=== PATIENT | male | born 1950 | race African-American/Black ===

== ENCOUNTER 2019-04-01 11:41 | Inpatient (IN) | payer BC ==
[~2019-04-01] VITALS: Ht 180.3 cm; Wt 94.3 kg
[2019-04-01] MEDS ORDERED: FAMO20TA8 PO (11:52)
[2019-04-01] MEDS ORDERED: TAMS-11 PO (11:52)
[2019-04-01] MEDS ORDERED: ALIS300T PO (11:52)
[2019-04-01] MEDS ORDERED: METO-411 PO (11:52)
[2019-04-01] MEDS ORDERED: HYDR-4135 PO (11:52)
[2019-04-01] MEDS ORDERED: LOSA100T32 PO (11:52)
[2019-04-01 14:04] LABS: BASOPHILS % 0.7 % (0.0-2.0); EOSINOPHILS % 2.9 % (0.0-5.0); HEMATOCRIT. 39.4 % (42.0-52.0); HEMOGLOBIN. 12.8 g/dL (14.0-18.0); LYMPHOCYTES % 21.8 % (20.0-50.0); MEAN CORPUSCULAR HEMOGLOBIN 25.8 pg (28.0-32.0); MEAN CORPUSCULAR VOLUME 79.6 fL (80.0-94.0); MEAN PLATELET VOLUME 8.2 fl (7.4-10.4); MONOCYTES % 11.9 % (2.0-8.0); NEUTROPHILS % 62.7 % (40.0-76.0); PLATELET 251 x1000/uL (130-400); RED BLOOD CELL COUNT 4.95 mill/uL (4.7-6.1); RED CELL DISTRIBUTION WIDTH 15.3 % (11.6-14.6)
[2019-04-01 14:08] LABS: CHLORIDE 103 mEq/L (98-107)
[2019-04-01] MEDS ORDERED: ASPIRIN 325MG EC TABLET PO ONE (14:30)
[2019-04-01] MEDS ORDERED: CLONIDINE 0.1MG TABLET PO ONE (15:15)
[2019-04-01] MEDS ORDERED: MAGNESIUM/ALUMINUM HYDROXIDE/SIMETHICONE 30ML UDC PO PRN (16:15)
[2019-04-01] MEDS ORDERED: ENOXAPARIN 40MG/0.4ML SYR SUBCUT SCH (16:15)
[2019-04-01] MEDS ORDERED: NA PHOS,M-B/NA PHOS,DI-BA ENEMA 118ML PR PRN (16:15)
[2019-04-01] MEDS ORDERED: HYDROCODONE/ACETAMINOPHEN 10/325MG TABLET PO PRN (16:15)
[2019-04-01] MEDS ORDERED: LORAZEPAM 2MG/ML CPJ IV PRN (16:15)
[2019-04-01] MEDS ORDERED: IPRATROPIUM/ALBUTEROL 0.5-3(2.5)MG/3ML NEB INH PRN (16:15)
[2019-04-01] MEDS ORDERED: ONDANSETRON HCL 4MG/2ML INJ IV PRN (16:15)
[2019-04-01] MEDS ORDERED: HYDRALAZINE 20MG/ML VIAL IV PRN ×2 (16:15→17:30)
[2019-04-01] MEDS ORDERED: ACETAMINOPHEN 325MG TABLET PO PRN (16:15)
[2019-04-01] MEDS ORDERED: DIPHENHYDRAMINE 50MG/ML VIAL IV PRN (16:15)
[2019-04-01] MEDS ORDERED: HYDROMORPHONE HCL/PF 2MG/ML CPJ IV PRN (16:15)
[2019-04-01] MEDS ORDERED: GUAIFENESIN 200MG/10ML SUGAR FREE UDC PO PRN (16:15)
[2019-04-01] MEDS: CLONIDINE 0.1MG TABLET PO PRN (17:48)
[2019-04-01 19:14] VITALS: BP 127/75
[2019-04-01 20:00] VITALS: BP_SYST 116; BP_SYST 127; BP_DIAS 59; BP_DIAS 75
[2019-04-01] MEDS: ENOXAPARIN 40MG/0.4ML SYR SUBCUT SCH (20:00)
[2019-04-01] MEDS: SODIUM CHLORIDE 0.9% INJ 3ML FLUSH IVF SCH (21:42)
[2019-04-02] VITALS: BP 147/96
[2019-04-02 04:00] VITALS: BP 150/98
[2019-04-02] MEDS: SODIUM CHLORIDE 0.9% INJ 3ML FLUSH IVF SCH ×2 (05:13→21:01)
[2019-04-02] MEDS: CLONIDINE 0.1MG TABLET PO PRN (06:13)
[2019-04-02 08:00] VITALS: BP 157/94
[2019-04-02 09:21] LABS: BASOPHILS % 0.4 % (0.0-2.0); EOSINOPHILS % 4.4 % (0.0-5.0); HEMATOCRIT. 39.4 % (42.0-52.0); HEMOGLOBIN. 12.7 g/dL (14.0-18.0); LYMPHOCYTES % 38.3 % (20.0-50.0); MEAN CORPUSCULAR HEMOGLOBIN 25.8 pg (28.0-32.0); MEAN CORPUSCULAR VOLUME 80.2 fL (80.0-94.0); MONOCYTES % 13.2 % (2.0-8.0); NEUTROPHILS % 43.7 % (40.0-76.0); RED BLOOD CELL COUNT 4.92 mill/uL (4.7-6.1); RED CELL DISTRIBUTION WIDTH 15.3 % (11.6-14.6)
[2019-04-02 09:23] LABS: CHLORIDE 105 mEq/L (98-107)
[2019-04-02 09:31] LABS: HDL CHOLESTEROL 36 mg/dL (40-59); LDL CHOLESTEROL 186 mg/dL (5-100)
[2019-04-02 09:32] LABS: T4 FREE 0.93 ng/dL (0.76-1.46)
[2019-04-02] MEDS: HYDRALAZINE HCL 50MG TABLET PO SCH ×2 (09:32→21:00)
[2019-04-02] MEDS: ASPIRIN 81MG EC TABLET PO SCH (09:33)
[2019-04-02] MEDS: METOPROLOL TARTRATE 50MG TABLET PO SCH ×2 (09:33→21:00)
[2019-04-02] MEDS: DOCUSATE SODIUM 100MG CAPSULE PO PRN (09:33)
[2019-04-02 09:35] LABS: CREATINE KINASE 95 IU/L (39-308)
[2019-04-02 09:36] LABS: CREATINE KINASE MB FRACTION 1.7 ng/mL (0.5-3.6)
[2019-04-02] MEDS ORDERED: REGADENOSON 0.4 MG/5 ML IV ONE (11:45)
[2019-04-02 12:00] VITALS: BP 128/78
[2019-04-02 16:00] VITALS: BP 151/91
[2019-04-02 20:00] VITALS: BP 160/93
[2019-04-02 20:13] LABS: CLARITY URINE CLEAR (CLEAR); COLOR URINE YELLOW (YELLOW); KETONES URINE NEGATIVE (NEGATIVE); LEUKOCYTE ESTERASE URINE NEGATIVE (NEGATIVE); NITRITE URINE NEGATIVE (NEGATIVE); OCCULT BLOOD URINE NEGATIVE (NEGATIVE); PROTEIN URINE NEGATIVE (NEGATIVE); SPECIFIC GRAVITY URINE 1.013 (1.005-1.030)
[2019-04-02] MEDS: ENOXAPARIN 40MG/0.4ML SYR SUBCUT SCH (21:00)
[2019-04-03] VITALS: BP 157/102
[2019-04-03 04:00] VITALS: BP 153/86
[2019-04-03] MEDS: SODIUM CHLORIDE 0.9% INJ 3ML FLUSH IVF SCH ×3 (05:27→22:19)
[2019-04-03] MEDS: CLONIDINE 0.1MG TABLET PO PRN (06:28)
[2019-04-03] MEDS: DOCUSATE SODIUM 100MG CAPSULE PO PRN ×2 (06:28→17:39)
[2019-04-03 06:49] LABS: CHLORIDE 105 mEq/L (98-107)
[2019-04-03 06:50] LABS: BASOPHILS % 0.8 % (0.0-2.0); EOSINOPHILS % 3.8 % (0.0-5.0); HEMATOCRIT. 39.9 % (42.0-52.0); LYMPHOCYTES % 34.2 % (20.0-50.0); MEAN CORPUSCULAR HEMOGLOBIN 26.1 pg (28.0-32.0); MEAN CORPUSCULAR VOLUME 79.8 fL (80.0-94.0); MEAN PLATELET VOLUME 7.9 fl (7.4-10.4); MONOCYTES % 11.9 % (2.0-8.0); NEUTROPHILS % 49.3 % (40.0-76.0); PLATELET 273 x1000/uL (130-400); RED CELL DISTRIBUTION WIDTH 15.4 % (11.6-14.6)
[2019-04-03 08:00] VITALS: BP 162/89
[2019-04-03] MEDS: ASPIRIN 81MG EC TABLET PO SCH (08:54)
[2019-04-03] MEDS: METOPROLOL TARTRATE 50MG TABLET PO SCH ×2 (08:54→21:03)
[2019-04-03 12:00] VITALS: BP 156/92
[2019-04-03] MEDS: HYDRALAZINE HCL 50MG TABLET PO SCH ×3 (15:59→17:41)
[2019-04-03 16:00] VITALS: BP 150/88
[2019-04-03 20:00] VITALS: BP 117/61
[2019-04-03] MEDS ORDERED: GABAPENTIN 400MG CAPSULE PO SCH (21:00)
[2019-04-03] MEDS: ENOXAPARIN 40MG/0.4ML SYR SUBCUT SCH (21:02)
[2019-04-04] VITALS: BP 138/77
[2019-04-04 04:00] VITALS: BP 134/69
[2019-04-04] MEDS: SODIUM CHLORIDE 0.9% INJ 3ML FLUSH IVF SCH ×2 (06:52→14:53)
[2019-04-04 08:00] VITALS: BP 161/100
[2019-04-04] MEDS: ASPIRIN 81MG EC TABLET PO SCH (08:20)
[2019-04-04] MEDS: HYDRALAZINE HCL 50MG TABLET PO SCH (08:21)
[2019-04-04] MEDS: METOPROLOL TARTRATE 50MG TABLET PO SCH (08:21)
[2019-04-04 08:34] LABS: HEMATOCRIT. 40.2 % (42.0-52.0); HEMOGLOBIN. 13.1 g/dL (14.0-18.0); MEAN CORPUSCULAR HEMOGLOBIN 26.2 pg (28.0-32.0); MEAN CORPUSCULAR VOLUME 80.1 fL (80.0-94.0); MEAN PLATELET VOLUME 8.2 fl (7.4-10.4); PLATELET 263 x1000/uL (130-400); RED BLOOD CELL COUNT 5.01 mill/uL (4.7-6.1); RED CELL DISTRIBUTION WIDTH 15.5 % (11.6-14.6)
[2019-04-04 08:44] LABS: CHLORIDE 105 mEq/L (98-107)
[2019-04-04] MEDS ORDERED: REGADENOSON 0.4 MG/5 ML IV ONE (09:32)
[2019-04-04 12:00] VITALS: BP 161/92
[2019-04-04 13:49] LABS: PLATELET ESTIMATE NORMAL
[2019-04-04 14:35] VITALS: BP 161/92
[2019-04-04] MEDS: HYDRALAZINE HCL 100MG TABLET PO SCH ×2 (14:54→17:13)
[2019-04-04 16:00] VITALS: BP 128/72
== END 2019-04-04 17:41 | disposition home or self-care (01) | DRG 305 ==
LOC: ER 11:41 → 6WST 14:36 → EDBEDREQTM 14:40 → ENRESERV 14:47
PROVIDERS: ADMIT Internal Medicine; ATTEND Internal Medicine
DX: I10 Essential (primary) hypertension (principal); I42.9 Cardiomyopathy, unspecified; I47.2 Ventricular tachycardia; R79.9 Abnormal finding of blood chemistry, unspecified; R20.2 Paresthesia of skin; T46.5X6A Underdosing of other antihypertensive drugs, initial encounter; Z86.79 Personal history of other diseases of the circulatory system; Z79.899 Other long term (current) drug therapy; Z88.8 Allergy status to other drugs, medicaments and biological substances; Z91.14 Patient's other noncompliance with medication regimen; Z98.1 Arthrodesis status
CPT/HCPCS: 36415; 71045; 78452; 80048; 80061; 81003; 82550; 82553; 83036; 83735; 83880; 84132; 84439; 84443; 84484; 85379; 93005; 93017; 93306; 99291; A9500; J0360; J1650; J2785

== ENCOUNTER 2019-10-24 23:16 | Inpatient (IN) | payer BC ==
[~2019-10-24] VITALS: Ht 185.4 cm; Wt 85.3 kg
[~2019-10-24 23:16] MED LIST: ALIS300T PO; FAMO20TA8 PO; HYDR-4135 PO; LOSA100T32 PO; METO-411 PO; TAMS-11 PO
[2019-10-25] VITALS (8 sets, daily range): BP systolic 108–188; BP diastolic 78–130
[2019-10-25] MEDS ORDERED: HYDRALAZINE 20MG/ML VIAL IV ONE (03:00)
[2019-10-25 03:10] LABS: HEMATOCRIT. 39.4 % (42.0-52.0); HEMOGLOBIN. 12.7 g/dL (14.0-18.0); MEAN CORPUSCULAR HEMOGLOBIN 24.9 pg (28.0-32.0); MEAN PLATELET VOLUME 8.7 fl (7.4-10.4); PLATELET 183 x1000/uL (130-400); RED BLOOD CELL COUNT 5.11 mill/uL (4.7-6.1)
[2019-10-25 03:17] LABS: CHLORIDE 100 mEq/L (98-107)
[2019-10-25 03:19] LABS: INR 1.6; PARTIAL THROMBOPLASTIN TIME 27.7 sec (23.4-31.0); PROTHROMBIN TIME 17.4 sec (9.6-11.0)
[2019-10-25] MEDS ORDERED: ASPIRIN 325MG TABLET PO SCH (04:30)
[2019-10-25] MEDS ORDERED: FUROSEMIDE 20MG/2ML VIAL IVP SCH (04:30)
[2019-10-25] MEDS ORDERED: HYDRALAZINE 20MG/ML VIAL IV SCH (04:45)
[2019-10-25 05:08] LABS: ATYPICAL LYMPHOCYTES 1
[2019-10-25 05:09] LABS: PLATELET ESTIMATE NORMAL
[2019-10-25] MEDS ORDERED: METOPROLOL TARTRATE 25MG TABLET PO SCH (09:30)
[2019-10-25] MEDS ORDERED: ACETAMINOPHEN 325MG TABLET PO PRN (09:30)
[2019-10-25] MEDS ORDERED: MORPHINE SULFATE 4 MG/ML CPJ (NOT FOR IM USE) IV PRN (09:30)
[2019-10-25] MEDS ORDERED: ONDANSETRON HCL 4MG/2ML INJ IV PRN (09:30)
[2019-10-25] MEDS ORDERED: DOCUSATE SODIUM 100MG CAPSULE PO PRN (09:30)
[2019-10-25] MEDS: ASPIRIN 325MG EC TABLET PO SCH (09:30)
[2019-10-25] MEDS ORDERED: IPRATROPIUM/ALBUTEROL 0.5-3(2.5)MG/3ML NEB NEB PRN (09:30)
[2019-10-25] MEDS ORDERED: MAGNESIUM/ALUMINUM HYDROXIDE/SIMETHICONE 30ML UDC PO PRN (09:30)
[2019-10-25] MEDS ORDERED: TRAMADOL 50MG TABLET PO PRN (09:30)
[2019-10-25] MEDS ORDERED: NITROGLYCERIN 0.4MG TABLET SL SL PRN (09:30)
[2019-10-25] MEDS ORDERED: GUAIFENESIN 200MG/10ML SUGAR FREE UDC PO PRN (09:30)
[2019-10-25] MEDS ORDERED: CLONIDINE 0.1MG TABLET PO PRN (09:30)
[2019-10-25 10:13] LABS: PHOSPHORUS 3.7 mg/dL (2.5-4.9)
[2019-10-25 10:16] LABS: T4 FREE 1.29 ng/dL (0.76-1.46)
[2019-10-25] MEDS: ENOXAPARIN 100MG/ML SYR SUBCUT SCH ×2 (11:00→22:30)
[2019-10-25 13:05] LABS: *BARBITURATES SCREEN URINE NEGATIVE (NEGATIVE); *BENZODIAZEPINES SCREEN URINE NEGATIVE (NEGATIVE); CANNABINOID URINE SCREEN NEGATIVE (NEGATIVE)
[2019-10-25 13:06] LABS: *COCAINE SCREEN URINE PRESUMTIVE POSITIVE (NEGATIVE); METHADONE URINE SCREEN NEGATIVE (NEGATIVE); OPIATES URINE SCREEN NEGATIVE (NEGATIVE); PHENCYCLIDINE URINE SCREEN NEGATIVE (NEGATIVE)
[2019-10-25 13:10] LABS: *AMPHETAMINES SCREEN URINE NEGATIVE (NEGATIVE)
[2019-10-25] MEDS: LOSARTAN POTASSIUM 100 MG TABLET PO SCH (14:45)
[2019-10-25] MEDS: FUROSEMIDE 100MG/10ML VIAL IVP SCH (16:54)
[2019-10-25 17:43] LABS: CREATINE KINASE MB FRACTION 2.9 ng/mL (0.5-3.6)
[2019-10-25] MEDS: SPIRONOLACTONE 25MG TABLET PO SCH (18:31)
[2019-10-25] MEDS: HYDRALAZINE HCL 25MG TABLET PO SCH (20:22)
[2019-10-25] MEDS: ZOLPIDEM TARTRATE 5MG TABLET PO PRN (20:22)
[2019-10-25] MEDS: FAMOTIDINE 20MG TABLET PO SCH (20:22)
[2019-10-25] MEDS ORDERED: ATORVASTATIN CALCIUM 20MG TABLET PO SCH (21:00)
[2019-10-25] MEDS ORDERED: METOPROLOL TARTRATE 50MG TABLET PO SCH (21:00)
[2019-10-25 22:17] LABS: HEPATITIS B SURFACE ANTIGEN NEGATIVE
[2019-10-25 22:38] LABS: HEPATITIS A AB IGM NEGATIVE (NEGATIVE)
[2019-10-26] VITALS (12 sets, daily range): BP systolic 135–169; BP diastolic 66–105
[2019-10-26 00:36] LABS: CREATINE KINASE MB FRACTION 2.6 ng/mL (0.5-3.6)
[2019-10-26] MEDS: SPIRONOLACTONE 25MG TABLET PO SCH ×2 (05:44→18:02)
[2019-10-26] MEDS: FUROSEMIDE 100MG/10ML VIAL IVP SCH ×2 (06:18→18:01)
[2019-10-26 07:19] LABS: HEMOGLOBIN. 11.8 g/dL (14.0-18.0); MEAN CORPUSCULAR VOLUME 76.5 fL (80.0-94.0); MEAN PLATELET VOLUME 9.1 fl (7.4-10.4); PLATELET 146 x1000/uL (130-400); RED BLOOD CELL COUNT 4.71 mill/uL (4.7-6.1)
[2019-10-26 08:03] LABS: CHLORIDE 101 mEq/L (98-107)
[2019-10-26 08:26] LABS: PHOSPHORUS 3.5 mg/dL (2.5-4.9)
[2019-10-26] MEDS: FAMOTIDINE 20MG TABLET PO SCH ×2 (08:45→20:06)
[2019-10-26] MEDS: ASPIRIN 325MG EC TABLET PO SCH (08:46)
[2019-10-26] MEDS: HYDRALAZINE HCL 25MG TABLET PO SCH ×2 (08:46→20:07)
[2019-10-26] MEDS: LOSARTAN POTASSIUM 100 MG TABLET PO SCH (08:46)
[2019-10-26] MEDS: ENOXAPARIN 100MG/ML SYR SUBCUT SCH ×2 (11:47→22:53)
[2019-10-26] MEDS ORDERED: MAGNESIUM 2 G PREMIX 50 ML IV NR (16:00)
[2019-10-26 16:59] LABS: PLATELET ESTIMATE NORMAL
[2019-10-26 18:33] LABS: VITAMIN B12 SERUM >2000 pg/mL pg/mL (211-911)
[2019-10-26] MEDS: ZOLPIDEM TARTRATE 5MG TABLET PO PRN (20:06)
[2019-10-26] MEDS: AMLODIPINE 2.5MG TABLET PO SCH (20:06)
[2019-10-27] VITALS (12 sets, daily range): BP systolic 117–167; BP diastolic 54–105
[2019-10-27] MEDS: SPIRONOLACTONE 25MG TABLET PO SCH ×2 (05:04→17:45)
[2019-10-27] MEDS: FUROSEMIDE 100MG/10ML VIAL IVP SCH (06:26)
[2019-10-27 06:49] LABS: MEAN CORPUSCULAR HEMOGLOBIN 24.4 pg (28.0-32.0); MEAN CORPUSCULAR VOLUME 76.9 fL (80.0-94.0); MEAN PLATELET VOLUME 9.4 fl (7.4-10.4); PLATELET 183 x1000/uL (130-400); RED BLOOD CELL COUNT 4.94 mill/uL (4.7-6.1); RED CELL DISTRIBUTION WIDTH 17.3 % (11.6-14.6)
[2019-10-27 07:39] LABS: CHLORIDE 98 mEq/L (98-107)
[2019-10-27] MEDS: AMLODIPINE 2.5MG TABLET PO SCH ×2 (09:40→21:42)
[2019-10-27] MEDS: HYDRALAZINE HCL 25MG TABLET PO SCH ×2 (09:40→17:45)
[2019-10-27] MEDS: LOSARTAN POTASSIUM 100 MG TABLET PO SCH (09:40)
[2019-10-27] MEDS: ASPIRIN 325MG EC TABLET PO SCH (09:40)
[2019-10-27] MEDS: FAMOTIDINE 20MG TABLET PO SCH ×2 (09:41→21:42)
[2019-10-27] MEDS ORDERED: POTASSIUM CHLORIDE 20MEQ/PACKET PO NR (09:45)
[2019-10-27] MEDS: TAMSULOSIN HCL 0.4MG SR CAPSULE PO SCH (11:06)
[2019-10-27] MEDS: ENOXAPARIN 100MG/ML SYR SUBCUT SCH ×2 (11:07→22:28)
[2019-10-27] MEDS ORDERED: KCL 20MEQ/100ML PREMIX 100 ML IV NR (11:30)
[2019-10-27 17:05] LABS: PLATELET ESTIMATE NORMAL
[2019-10-27] MEDS: ZOLPIDEM TARTRATE 5MG TABLET PO PRN (21:42)
[2019-10-28] VITALS (14 sets, daily range): BP systolic 104–167; BP diastolic 56–98
[2019-10-28] MEDS: SPIRONOLACTONE 25MG TABLET PO SCH ×2 (06:31→17:01)
[2019-10-28] MEDS: FUROSEMIDE 40MG TABLET PO SCH (08:21)
[2019-10-28] MEDS: ASPIRIN 81MG TABLET PO SCH (08:21)
[2019-10-28] MEDS: TAMSULOSIN HCL 0.4MG SR CAPSULE PO SCH (08:21)
[2019-10-28] MEDS: LOSARTAN POTASSIUM 100 MG TABLET PO SCH (08:21)
[2019-10-28] MEDS: HYDRALAZINE HCL 25MG TABLET PO SCH ×3 (08:21→17:01)
[2019-10-28] MEDS: FAMOTIDINE 20MG TABLET PO SCH ×2 (08:22→21:28)
[2019-10-28] MEDS: AMLODIPINE 2.5MG TABLET PO SCH ×2 (08:22→21:29)
[2019-10-28] MEDS: ENOXAPARIN 100MG/ML SYR SUBCUT SCH ×2 (11:42→23:37)
[2019-10-28 13:33] LABS: HEMATOCRIT. 39.5 % (42.0-52.0); HEMOGLOBIN. 12.6 g/dL (14.0-18.0); MEAN CORPUSCULAR HEMOGLOBIN 24.4 pg (28.0-32.0); MEAN CORPUSCULAR VOLUME 76.6 fL (80.0-94.0); MEAN PLATELET VOLUME 9.2 fl (7.4-10.4); PLATELET 195 x1000/uL (130-400); RED BLOOD CELL COUNT 5.16 mill/uL (4.7-6.1); RED CELL DISTRIBUTION WIDTH 17.5 % (11.6-14.6)
[2019-10-28 13:41] LABS: CHLORIDE 97 mEq/L (98-107)
[2019-10-28 16:47] LABS: PLATELET ESTIMATE NORMAL
[2019-10-28] MEDS: ATORVASTATIN CALCIUM 20MG TABLET PO SCH (21:29)
[2019-10-28] MEDS: ZOLPIDEM TARTRATE 5MG TABLET PO PRN (21:29)
[2019-10-29] VITALS (11 sets, daily range): BP systolic 120–155; BP diastolic 60–91
[2019-10-29] MEDS: SPIRONOLACTONE 25MG TABLET PO SCH ×2 (06:44→17:01)
[2019-10-29 07:11] LABS: HEMATOCRIT. 36.8 % (42.0-52.0); HEMOGLOBIN. 12.3 g/dL (14.0-18.0); MEAN CORPUSCULAR HEMOGLOBIN 25.4 pg (28.0-32.0); MEAN CORPUSCULAR VOLUME 76.2 fL (80.0-94.0); MEAN PLATELET VOLUME 8.9 fl (7.4-10.4); PLATELET 205 x1000/uL (130-400); RED BLOOD CELL COUNT 4.84 mill/uL (4.7-6.1); RED CELL DISTRIBUTION WIDTH 16.9 % (11.6-14.6)
[2019-10-29 07:25] LABS: CHLORIDE 99 mEq/L (98-107)
[2019-10-29] MEDS: ASPIRIN 81MG TABLET PO SCH (08:13)
[2019-10-29] MEDS: HYDRALAZINE HCL 25MG TABLET PO SCH ×3 (08:13→17:01)
[2019-10-29] MEDS: AMLODIPINE 2.5MG TABLET PO SCH (08:13)
[2019-10-29] MEDS: LOSARTAN POTASSIUM 100 MG TABLET PO SCH (08:13)
[2019-10-29] MEDS: FUROSEMIDE 40MG TABLET PO SCH (08:14)
[2019-10-29] MEDS: FAMOTIDINE 20MG TABLET PO SCH ×2 (08:14→21:47)
[2019-10-29] MEDS: TAMSULOSIN HCL 0.4MG SR CAPSULE PO SCH (08:14)
[2019-10-29] MEDS: ENOXAPARIN 100MG/ML SYR SUBCUT SCH (11:05)
[2019-10-29 19:51] LABS: PLATELET ESTIMATE NORMAL
[2019-10-29] MEDS: ATORVASTATIN CALCIUM 20MG TABLET PO SCH (21:46)
[2019-10-29] MEDS: AMLODIPINE 5MG TABLET PO SCH (21:47)
[2019-10-30] VITALS (8 sets, daily range): BP systolic 120–150; BP diastolic 67–98
[2019-10-30] MEDS: ENOXAPARIN 100MG/ML SYR SUBCUT SCH ×2 (00:16→12:19)
[2019-10-30] MEDS: ZOLPIDEM TARTRATE 5MG TABLET PO PRN (00:16)
[2019-10-30] MEDS: SPIRONOLACTONE 25MG TABLET PO SCH (06:24)
[2019-10-30] MEDS: ASPIRIN 81MG TABLET PO SCH (08:41)
[2019-10-30] MEDS: AMLODIPINE 5MG TABLET PO SCH (08:41)
[2019-10-30] MEDS: HYDRALAZINE HCL 25MG TABLET PO SCH (08:41)
[2019-10-30] MEDS: LOSARTAN POTASSIUM 100 MG TABLET PO SCH (08:41)
[2019-10-30] MEDS: TAMSULOSIN HCL 0.4MG SR CAPSULE PO SCH (08:41)
[2019-10-30] MEDS: FAMOTIDINE 20MG TABLET PO SCH (08:41)
[2019-10-30] MEDS: FUROSEMIDE 40MG TABLET PO SCH (08:42)
[2019-10-30] MEDS ORDERED: CARVEDILOL 6.25 MG TABLET PO SCH (10:00)
[2019-10-30] MEDS ORDERED: HYDRALAZINE HCL 50MG TABLET PO SCH (13:00)
== END 2019-10-30 14:56 | disposition home health service (06) | DRG 291 ==
LOC: ER 23:16 → EDBEDREQ 10-25 05:19 → EDBEDREQSVC 10-25 05:19 → 3WST 10-25 05:54 → EDBEDREQ 10-25 06:28 → ENRESERV 10-25 07:34 → 3WST 10-25 08:55
PROVIDERS: ADMIT Internal Medicine; ATTEND Internal Medicine
DX: I11.0 Hypertensive heart disease with heart failure (principal); J96.00 Acute respiratory failure, unspecified whether with hypoxia or hypercapnia; E44.1 Mild protein-calorie malnutrition; E87.1 Hypo-osmolality and hyponatremia; I47.1 Supraventricular tachycardia; I50.43 Acute on chronic combined systolic (congestive) and diastolic (congestive) heart failure; I42.9 Cardiomyopathy, unspecified; F14.10 Cocaine abuse, uncomplicated; R74.0 Nonspecific elevation of levels of transaminase and lactic acid dehydrogenase [LDH]; I08.1 Rheumatic disorders of both mitral and tricuspid valves; I49.3 Ventricular premature depolarization; D64.9 Anemia, unspecified; K21.9 Gastro-esophageal reflux disease without esophagitis; N40.0 Benign prostatic hyperplasia without lower urinary tract symptoms; E78.5 Hyperlipidemia, unspecified; Z71.51 Drug abuse counseling and surveillance of drug abuser; Z88.8 Allergy status to other drugs, medicaments and biological substances; Z68.24 Body mass index [BMI] 24.0-24.9, adult
CPT/HCPCS: 36415; 71045; 76705; 80048; 80053; 80061; 80305; 82550; 82553; 82607; 82746; 83036; 83540; 83550; 83735; 83880; 84100; 84439; 84443; 84484; 85025; 86705; 86709; 86803; 87340; 93005; 93306; 93970; 97162; 99291; J0360; J1650; J1940; J3475; J3480